=== PATIENT | female | born 1980 | race Caucasian/White ===

== ENCOUNTER 2019-01-15 08:26 | Emergency (ER) | payer MEDICARE, MEDICAID ==
[~2019-01-15] VITALS: Ht 175.3 cm; Wt 86.2 kg
[2019-01-15 08:32] VITALS: BP 137/85
== END 2019-01-15 11:06 | disposition home or self-care (01) ==
LOC: ER 08:26
DX: H60.92 Unspecified otitis externa, left ear (principal)